=== PATIENT | female | born 1990 | race Caucasian/White ===

== ENCOUNTER 2018-06-13 22:20 | Emergency (ER) | payer BC, OTHER ==
[~2018-06-13] VITALS: Ht 172.7 cm; Wt 63.5 kg
[2018-06-13 22:33] VITALS: BP 147/89
[2018-06-13] MEDS ORDERED: GELATIN SPONGE,ABSORBABLE 1 SPONGE SPONGE TP ONE (23:19)
--- NOTE | 2018-06-13 23:45 | NUR ---
ASSUMED CARE AT DISCHARGE. Patient discharged to home in stable condition. Written and verbal after care instructions given. Patient verbalizes understanding of instruction.
== END 2018-06-13 23:46 | disposition home or self-care (01) ==
LOC: ER 22:26
DX: S61.303A Unspecified open wound of left middle finger with damage to nail, initial encounter (principal); F32.9 Major depressive disorder, single episode, unspecified; E04.2 Nontoxic multinodular goiter; E28.2 Polycystic ovarian syndrome; Z90.89 Acquired absence of other organs; W26.8XXA Contact with other sharp object(s), not elsewhere classified, initial encounter; Y93.89 Activity, other specified; Y92.89 Other specified places as the place of occurrence of the external cause; Y99.8 Other external cause status
CPT/HCPCS: 99283; A4606; A6402 ×2; A6403; Z7610

== ENCOUNTER 2023-02-02 22:03 | Emergency (ER) | payer MEDICAID, OTHER ==
[~2023-02-02] VITALS: Ht 175.3 cm; Wt 89.8 kg
[2023-02-02 22:47] LABS: BASOPHILS # (AUTO) 0.1 K/uL (0.0-0.2); BASOPHILS % (AUTO) 0.5 % (0.0-2.0); EOSINOPHILS # (AUTO) 0.1 K/uL (0.0-0.7); EOSINOPHILS % (AUTO) 0.6 % (0.0-6.0); HEMATOCRIT 38 % (33-45); HEMOGLOBIN 13.1 g/dL (11.5-14.8); LYMPHOCYTES # (AUTO) 2.1 K/uL (0.8-4.8); LYMPHOCYTES % (AUTO) 18.1 % (20.0-44.0); MEAN CORPUSCULAR HEMOGLOBIN 32 PG (26.0-33.0); MEAN CORPUSCULAR HGB CONC 34 g/dl (31.0-36.0); MEAN CORPUSCULAR VOLUME 92 fL (82-100); MONOCYTES # (AUTO) 0.8 K/uL (0.1-1.30); MONOCYTES % (AUTO) 6.8 % (2.0-12.0); NEUTROPHILS # (AUTO) 8.7 K/uL (1.8-8.9); PLATELET COUNT (AUTO) 334 K/uL (150-450); RED BLOOD CELL COUNT(AUTO) 4.14 MIL/uL (4.0-5.2); RED CELL DISTRIBUTION WIDTH 12.2 % (11.5-15.0); WHITE BLOOD COUNT (AUTO) 11.8 K/uL (4.3-11.0)
[2023-02-02 23:00] LABS: CALCIUM, SERUM 9.4 mg/dL (8.5-10.1); CARBON DIOXIDE 25 mmol/L (21-32); CHLORIDE 102 mmol/L (98-107); D-DIMER 0.19 mg/L(FEU (0.17-0.50); GLUCOSE 93 mg/dL (74-106); INR 1.01 (0.91-1.10); PARTIAL THROMBOPLASTIN TIME 30.2 SEC (24.3-34.3); POTASSIUM 3.6 mmol/L (3.5-5.1); PROTHROMBIN TIME 10.6 SECS (9.2-11.1); SODIUM SERUM 136 mmol/L (136-145); UREA NITROGEN, BLOOD 13 mg/dL (7-18)
[2023-02-02 23:04] LABS: ALANINE AMINOTRANSFERASE 29 U/L (12-78); ALBUMIN 3.7 g/dL (3.4-5.0); ALKALINE PHOSPHATASE 78 U/L (46-116); ASPARTATE AMINOTRANSFERASE 20 U/L (15-37); BILIRUBIN,DIRECT 0.1 mg/dL (0.0-0.2); BILIRUBIN,TOTAL 0.4 mg/dL (0.2-1.0)
[2023-02-02 23:36] LABS: PREGNANCY TEST URINE QUAL NEGATIVE (NEGATIVE)
[2023-02-03 01:04] VITALS: BP 149/103; TEMP 98.5; O2SAT 99
== END 2023-02-03 00:45 | disposition home or self-care (01) ==
LOC: ER 22:06
DX: R07.89 Other chest pain (principal); F43.9 Reaction to severe stress, unspecified; I10 Essential (primary) hypertension; F32.A Depression, unspecified; Z90.89 Acquired absence of other organs; Z20.822 Contact with and (suspected) exposure to COVID-19
CPT/HCPCS: 99285; 71045; 87426; 93005; 85025; 80048; 80076; 85378; 84703; 36415; 84484; 85730; C9803

== ENCOUNTER 2023-03-29 12:23 | Emergency (ER) | payer BC, OTHER ==
[~2023-03-29] VITALS: Ht 175.3 cm; Wt 88.5 kg
[2023-03-29] MEDS ORDERED: NA PHOS,M-B/NA PHOS,DI-BA 1 EA ENEMA RC ONE (12:59)
[2023-03-29] MEDS ORDERED: LIDOCAINE 2% JEL UROJET 10 ML MM ONE ×2 (12:59→13:00)
[2023-03-29] MEDS ORDERED: MINERAL OIL 133 ML (PYXIS) 1 EA ENEMA RC ONE (13:00)
[2023-03-29] MEDS ORDERED: IV NS 0.9% 1,000 ML BAG IV ONE (13:00)
[2023-03-29 13:21] LABS: BASOPHILS # (AUTO) 0.1 K/uL (0.0-0.2); BASOPHILS % (AUTO) 0.6 % (0.0-2.0); EOSINOPHILS # (AUTO) 0.1 K/uL (0.0-0.7); EOSINOPHILS % (AUTO) 0.5 % (0.0-6.0); HEMATOCRIT 38 % (33-45); HEMOGLOBIN 13.1 g/dL (11.5-14.8); LYMPHOCYTES # (AUTO) 1.3 K/uL (0.8-4.8); LYMPHOCYTES % (AUTO) 11.4 % (20.0-44.0); MEAN CORPUSCULAR HEMOGLOBIN 32 PG (26.0-33.0); MEAN CORPUSCULAR HGB CONC 34 g/dl (31.0-36.0); MEAN CORPUSCULAR VOLUME 93 fL (82-100); MONOCYTES # (AUTO) 0.5 K/uL (0.1-1.30); MONOCYTES % (AUTO) 4.7 % (2.0-12.0); NEUTROPHILS # (AUTO) 9.4 K/uL (1.8-8.9); NEUTROPHILS % (AUTO) 82.8 % (43.0-81.0); PLATELET COUNT (AUTO) 336 K/uL (150-450); RED BLOOD CELL COUNT(AUTO) 4.14 MIL/uL (4.0-5.2); RED CELL DISTRIBUTION WIDTH 12.7 % (11.5-15.0); WHITE BLOOD COUNT (AUTO) 11.4 K/uL (4.3-11.0)
[2023-03-29 13:49] LABS: CALCIUM, SERUM 9.3 mg/dL (8.5-10.1); CREATININE 0.8 mg/dL (0.6-1.3)
[2023-03-29 13:55] LABS: ALBUMIN 3.7 g/dL (3.4-5.0); BILIRUBIN,DIRECT 0.1 mg/dL (0.0-0.2); BILIRUBIN,TOTAL 0.3 mg/dL (0.2-1.0); TOTAL PROTEIN, SERUM 7.9 g/dL (6.4-8.2)
[2023-03-29] MEDS ORDERED: DOCU-141 PO (13:58)
[2023-03-29 14:23] VITALS: BP 151/86; TEMP 98.7; O2SAT 100
== END 2023-03-29 14:24 | disposition home or self-care (01) ==
LOC: ER 12:28
DX: K59.00 Constipation, unspecified (principal); K64.9 Unspecified hemorrhoids; F41.9 Anxiety disorder, unspecified; I10 Essential (primary) hypertension; F32.A Depression, unspecified; Z90.89 Acquired absence of other organs; Z60.2 Problems related to living alone
CPT/HCPCS: 99283; 96360; 85025; 80048; 83690; 80076; J3490; J7030; 36415

== ENCOUNTER 2024-04-16 19:17 | Emergency (ER) | payer BC, MEDICAID, OTHER ==
[~2024-04-16] VITALS: Ht 175.3 cm; Wt 88.5 kg
[~2024-04-16 19:17] MED LIST: DOCU-141 PO
[2024-04-16 20:20] VITALS: BP 132/79; TEMP 98.4; O2SAT 99
[2024-04-16] MEDS ORDERED: MECL-159 PO (21:21)
== END 2024-04-16 21:46 | disposition home or self-care (01) ==
LOC: ER 19:24
DX: S06.0X0A Concussion without loss of consciousness, initial encounter (principal); E28.2 Polycystic ovarian syndrome; I10 Essential (primary) hypertension; R11.0 Nausea; F32.A Depression, unspecified; Z90.89 Acquired absence of other organs; Z60.2 Problems related to living alone; X58.XXXA Exposure to other specified factors, initial encounter; Y93.89 Activity, other specified; Y92.89 Other specified places as the place of occurrence of the external cause; Y99.8 Other external cause status